=== PATIENT | female | born 1975 | race Caucasian/White ===

== ENCOUNTER 2019-04-16 15:07 | Emergency (ER) | payer OTHER ==
[~2019-04-16] VITALS: Ht 162.6 cm; Wt 96.2 kg
[~2019-04-16 15:07] MED LIST: CYCL10 PO; ERGO50000 PO; ESTRADIOL1 MG PO; HYDACE5 PO; IBUP600 PO; IBUP800 PO; LORA10ER PO; MONT10T PO; OXYACE5T PO; PROM25 PO; Pseudoephedrine30 MG PO; RANI150 PO; SULTRIDS
== END 2019-04-16 17:00 | disposition home or self-care (01) ==
LOC: ER 15:07
DX: G43.109 Migraine with aura, not intractable, without status migrainosus (principal); F17.200 Nicotine dependence, unspecified, uncomplicated; Z88.2 Allergy status to sulfonamides; Z91.048 Other nonmedicinal substance allergy status; Z88.8 Allergy status to other drugs, medicaments and biological substances
CPT/HCPCS: 70450; 96374; 96375; 99283-25; J1200; J1885; J2765; J7030

== ENCOUNTER → 2022-01-09 | Outpatient (CLI) | payer OTHER | END | disposition home or self-care (01) | LOC: LAB SHORT 10:16 → LAB 10:16 | DX: R30.9 Painful micturition, unspecified (principal) | CPT/HCPCS: 82043 ==

== ENCOUNTER 2022-02-25 07:03 | Day surgery (SDC) | payer OTHER ==
[~2022-02-25] VITALS: Ht 167.6 cm; Wt 90.0 kg
[2022-02-25] MEDS ORDERED: Cyclobenzaprine5 MG (07:53)
--- NOTE | 2022-02-25 07:59 | NUR ---
02/25/22 0759 Duglas Dickson CALL LIGHT WITHIN REACH. FAMILY BEDSIDE
--- NOTE | 2022-02-25 08:02 | NUR ---
02/25/22 0802 eVro Alfonso, SPIDER, GEL X3, WEDGE PILLOW FOR POSITIONING. POSITIONING CHECKD BY SURGEON AND ANESTHESIA.
--- NOTE | 2022-02-25 10:03 | NUR ---
02/25/22 1003 ALICJA REAL REPEAT BP 100/45. PT ALERT AND TALKING. STATES PAIN IS 6/10 IN R SHOULDER. REPEAT BP IS 111/67. O2 SAT ON RA IS 96% AND PULSE 90
--- NOTE | 2022-02-25 10:22 | NUR ---
02/25/22 1022 ALICJA REAL WILL GIVE ANOTHER DOSE OF FENTANYL 25MCG IV PUSH TO = 50MCG. BP 108/69
== END 2022-02-25 11:30 | disposition home or self-care (01) ==
LOC: ORSCSDS 07:03
PROVIDERS: Orthopaedic Surgery
PROC: 0LQ14ZZ Repair Right Shoulder Tendon, Percutaneous Endoscopic Approach (ICD-10-PCS; principal; 2022-02-25 08:30)
PROC: 0RNJ4ZZ Release Right Shoulder Joint, Percutaneous Endoscopic Approach (ICD-10-PCS; principal; 2022-02-25 08:30)
DX: M75.111 Incomplete rotator cuff tear or rupture of right shoulder, not specified as traumatic (principal); M75.21 Bicipital tendinitis, right shoulder; M75.41 Impingement syndrome of right shoulder
CPT/HCPCS: A9270; C1713; J0171; J0690; J1100; J2250; J2405; J2704; J3010; J7120

== ENCOUNTER → 2022-12-24 | Outpatient (CLI) | payer OTHER ==
[~2022-12-24] MED LIST changes: +Cyclobenzaprine5 MG
== END | disposition home or self-care (01) ==
LOC: PLD 07:30 → LAB 07:30 → LAB SHORT 07:30
DX: D23.5 Other benign neoplasm of skin of trunk (principal)
CPT/HCPCS: 88305

== ENCOUNTER 2023-03-13 14:00 | Day surgery (SDC) | payer OTHER ==
[~2023-03-13] VITALS: Ht 167.6 cm; Wt 95.3 kg
[2023-03-13] MEDS ORDERED: TRAM50 (14:11)
[2023-03-13] MEDS ORDERED: CYCL10 (14:12)
[2023-03-13] MEDS ORDERED: LIDOCAINE1 EACH (14:12)
[2023-03-13 15:43] VITALS: BP 119/76
== END 2023-03-13 15:47 | disposition home or self-care (01) ==
LOC: ORSCSDS 14:00
PROVIDERS: Internal Medicine Gastroenterology
PROC: 0DBM8ZX Excision of Descending Colon, Via Natural or Artificial Opening Endoscopic, Diagnostic (ICD-10-PCS; principal; 2023-03-13 15:15)
DX: Z12.11 Encounter for screening for malignant neoplasm of colon (principal); K52.9 Noninfective gastroenteritis and colitis, unspecified; Z87.891 Personal history of nicotine dependence; K57.30 Diverticulosis of large intestine without perforation or abscess without bleeding
CPT/HCPCS: 88305; J0461; J2001; J2405; J2704; J7120; Q9968

== ENCOUNTER 2023-08-17 19:24 | Emergency (ER) | payer OTHER ==
[~2023-08-17] VITALS: Ht 167.6 cm; Wt 93.4 kg
[~2023-08-17 19:24] MED LIST changes: +CYCL10; +LIDOCAINE1 EACH; +TRAM50
[2023-08-17 19:41] VITALS: BP 161/102
[2023-08-17] MEDS ORDERED: Dexamethasone Sod Phos 10 MG/ML 1ML VIAL PO ONE (19:50)
[2023-08-17] MEDS ORDERED: Famotidine 20 MG Tab PO ONE (19:50)
[2023-08-17] MEDS ORDERED: RX Prepack 2 Tabs Ondansetron ODT 4MG UD ONE (20:35)
== END 2023-08-17 20:46 | disposition home or self-care (01) ==
LOC: ER 19:24
DX: T78.40XA Allergy, unspecified, initial encounter (principal); Z88.2 Allergy status to sulfonamides; Z91.048 Other nonmedicinal substance allergy status; Z88.8 Allergy status to other drugs, medicaments and biological substances; Z88.6 Allergy status to analgesic agent; Z88.5 Allergy status to narcotic agent; Z91.011 Allergy to milk products; Z79.899 Other long term (current) drug therapy
CPT/HCPCS: 99283; A9270; J1100

== ENCOUNTER → 2024-01-16 | Outpatient (CLI) | payer OTHER ==
[2024-01-16 14:43] LABS: BASOPHILS ABSOLUTE AUTO 0.03 K/mm3 (0.00-0.23); BASOPHILS PERCENT AUTO 0 % (0-2); EOSINOPHILS ABSOLUTE AUTO 0.05 K/mm3 (0.00-0.68); EOSINOPHILS PERCENT AUTO 0 % (0-6); Hematocrit 47.8 % (33.0-51.0); Hemoglobin 15.7 g/dL (11.5-16.0); IMMATURE GRAN ABSOLUTE AUTO 0.06 K/mm3 (0.00-0.10); IMMATURE GRAN PERCENT AUTO 0 % (0-1); LYMPHOCYTES ABSOLUTE AUTO 1.93 K/mm3 (0.84-5.20); LYMPHOCYTES PERCENT AUTO 12 % (21-46); MONOCYTES ABSOLUTE AUTO 0.59 K/mm3 (0.16-1.47); MONOCYTES PERCENT AUTO 4 % (4-13); Mean Corpuscular HGB 28.8 pg (26.0-34.0); Mean Corpuscular HGB Conc 32.8 g/dL (31.5-36.5); Mean Corpuscular Volume 88 fL (80-100); Mean Platelet Volume 10.6 fL (9.1-12.4); NEUTROPHILS PERCENT AUTO 83 % (41-73); Platelet Count 304 K/mm3 (150-400); RDW Coefficient Variation 14.1 % (11.7-14.2); Red Blood Cell Count 5.46 M/mm3 (3.80-5.20); White Blood Cell Count 15.56 K/mm3 (4.00-11.30)
[2024-01-16 14:54] LABS: Albumin, Blood 4.2 g/dL (3.4-5.0); Albumin/Globulin Ratio 1.1 (0.8-1.8); Bilirubin, Total 0.4 mg/dL (0.1-1.0); Bun/Creatinine Ratio 15.1 (12.0-20.0); Calcium, Blood 9.7 mg/dL (8.5-10.1); Creatinine, Blood 0.86 mg/dL (0.40-1.00); Potassium, Blood 3.8 mmol/L (3.5-5.5); Total Protein, Blood 8.2 g/dL (6.4-8.2)
== END ==
LOC: LAB 14:38 → LAB SHORT 14:38
PROVIDERS: Internal Medicine
DX: R19.7 Diarrhea, unspecified (principal); E86.0 Dehydration
CPT/HCPCS: 80053; 85025

== ENCOUNTER 2024-08-31 06:11 | Day surgery (SDC) | payer OTHER ==
[~2024-08-31] VITALS: Ht 167.6 cm; Wt 80.1 kg
[2024-08-31] MEDS ORDERED: NS 0 ML IV ONE (06:21)
[2024-08-31] MEDS ORDERED: Tranexamic Acid 100 ML IV ONE (06:22)
[2024-08-31] MEDS ORDERED: Lactated Ringer's 1,000 ML IV ONE ×3 (06:50→09:21)
[2024-08-31] MEDS ORDERED: ASPI81CH (06:54)
[2024-08-31] MEDS ORDERED: ACET500 (06:54)
[2024-08-31] MEDS ORDERED: Lidocaine 2%-Epineph 1:200000 20 ML SDV ONE (06:55)
[2024-08-31] MEDS ORDERED: EPINEPhrine HCl 1 MG / ML 30ML Vial ONE (06:55)
[2024-08-31] MEDS ORDERED: propofoL 20 ML IV ONE (07:02)
[2024-08-31] MEDS ORDERED: Midazolam HCl 1MG / ML 2ML Vial ONE (07:02)
[2024-08-31] MEDS ORDERED: Rocuronium Bromide 10 MG/ML 5ML Injection IV ONE (07:02)
[2024-08-31] MEDS ORDERED: FentaNYL Citrate 50 MCG/ML 2 ML Injection ONE (07:02)
[2024-08-31] MEDS ORDERED: Dexamethasone Sod Phos 10 MG/ML 1ML VIAL ONE (07:35)
[2024-08-31] MEDS ORDERED: Ondansetron HCl 2 MG / ML 2ML Vial ONE (07:35)
--- NOTE | 2024-08-31 07:52 | NUR ---
08/31/24 0752 Eulalia Carranza STARTED AT [address] CAPELLAN
[2024-08-31] MEDS ORDERED: Sugammadex Sodium 200 MG/2ML SDV (100 MG/ML) ONE (08:29)
[2024-08-31] MEDS ORDERED: Phenylephrine HCl 100 MCG/ML-NS 10MLSYR (1MG/10ML) ONE (08:29)
[2024-08-31] MEDS ORDERED: Ketorolac Tromethamine 30mg Vial ONE (08:29)
[2024-08-31 09:29] VITALS: BP 122/85
--- NOTE | 2024-08-31 09:29 | NUR ---
08/31/24 0929 Mandy Storey RECEIVED REPORT FROM ALOK KLEIN
== END 2024-08-31 09:57 | disposition home or self-care (01) ==
LOC: ORSCSDS 06:11
PROVIDERS: Otolaryngology
PROC: 09BM0ZZ Excision of Nasal Septum, Open Approach (ICD-10-PCS; principal; 2024-08-31 07:30)
PROC: 09SL0ZZ Reposition Nasal Turbinate, Open Approach (ICD-10-PCS; principal; 2024-08-31 07:30)
DX: J34.2 Deviated nasal septum (principal); J34.3 Hypertrophy of nasal turbinates; J32.8 Other chronic sinusitis
CPT/HCPCS: J0171; J1100; J1885; J2250; J2371; J2405; J2704; J3010; J7030; J7120

== ENCOUNTER 2024-11-11 13:01 | Emergency (ER) | payer OTHER ==
[~2024-11-11] VITALS: Ht 167.6 cm; Wt 83.9 kg
[~2024-11-11 13:01] MED LIST changes: +ACET500; +ASPI81CH
[2024-11-11] MEDS ORDERED: Dexamethasone Sod Phos 10 MG/ML 1ML VIAL IV ONE (13:45)
[2024-11-11 15:07] VITALS: BP 142/88
[2024-11-11] MEDS ORDERED: EPIPEN0.3 MG/0.3 IM (15:16)
== END 2024-11-11 15:25 | disposition home or self-care (01) ==
LOC: ER 13:01
DX: R21 Rash and other nonspecific skin eruption (principal); R06.02 Shortness of breath; T42.6X5A Adverse effect of other antiepileptic and sedative-hypnotic drugs, initial encounter; Z88.2 Allergy status to sulfonamides; Z88.1 Allergy status to other antibiotic agents; Z91.011 Allergy to milk products; Z88.5 Allergy status to narcotic agent; Z79.2 Long term (current) use of antibiotics; Z79.82 Long term (current) use of aspirin
CPT/HCPCS: 93005; 93010; 96374; 99283-25; J1100

== ENCOUNTER 2024-11-14 19:46 | Emergency (ER) | payer OTHER ==
[~2024-11-14] VITALS: Ht 167.6 cm; Wt 83.9 kg
[~2024-11-14 19:46] MED LIST changes: +EPIPEN0.3 MG/0.3 IM
[2024-11-14 20:20] LABS: Hematocrit 41.2 % (33.0-51.0); Hemoglobin 13.6 g/dL (11.5-16.0); Mean Corpuscular HGB 28.9 pg (26.0-34.0); Mean Corpuscular Volume 88 fL (80-100); Mean Platelet Volume 10.7 fL (9.1-12.4); Platelet Count 303 K/mm3 (150-400); RDW Coefficient Variation 13.6 % (11.7-14.2); RDW Standard Deviation 43.6 fL (35.1-46.3); Red Blood Cell Count 4.71 M/mm3 (3.80-5.20); White Blood Cell Count 12.02 K/mm3 (4.00-11.30)
[2024-11-14 20:52] LABS: Albumin, Blood 4.2 g/dL (3.4-5.0); Albumin/Globulin Ratio 1.3 (0.8-1.8); Bilirubin, Total 0.2 mg/dL (0.1-1.0); Bun/Creatinine Ratio 17.2 (12.0-20.0); Calcium, Blood 9.4 mg/dL (8.5-10.1); Creatinine, Blood 0.87 mg/dL (0.40-1.00); Globulin, Blood 3.3 g/dL (2.2-4.0); Potassium, Blood 3.5 mmol/L (3.5-5.5); Total Protein, Blood 7.5 g/dL (6.4-8.2)
[2024-11-14 21:06] LABS: BASOPHILS PERCENT MAN 0 % (0-2); EOSINOPHILS ABSOLUTE MAN 0.24 K/mm3 (0.00-0.68); EOSINOPHILS PERCENT MAN 2 % (0-6); LYMPHOCYTES ABSOLUTE MAN 4.56 K/mm3 (0.84-5.20); LYMPHOCYTES PERCENT MAN 38 % (21-46); MONOCYTES PERCENT MAN 5 % (4-13); NEUTROPHILS ABSOLUTE MAN 6.61 K/mm3 (1.96-9.15); SEG NEUTROPHILS PERCENT MAN 55 % (41-73); TOTAL CELLS COUNTED 100
[2024-11-14] MEDS ORDERED: MethylPREDNISolone Sod Succ 125 MG Vial IV ONE (22:45)
[2024-11-14] MEDS ORDERED: DiphenhydrAMINE HCl 50 MG/ML 1ML Vial IV ONE (22:45)
[2024-11-14] MEDS ORDERED: Famotidine 10 MG/ML 2ML Vial IV ONE (22:45)
[2024-11-15 00:30] VITALS: BP 144/105
== END 2024-11-15 01:04 | disposition home or self-care (01) ==
LOC: ER 19:46
PROVIDERS: Emergency Medicine
DX: L27.1 Localized skin eruption due to drugs and medicaments taken internally (principal); T42.3X5A Adverse effect of barbiturates, initial encounter; Z88.2 Allergy status to sulfonamides; Z88.8 Allergy status to other drugs, medicaments and biological substances; Z91.09 Other allergy status, other than to drugs and biological substances; Z88.5 Allergy status to narcotic agent; Z91.011 Allergy to milk products; Z79.82 Long term (current) use of aspirin
CPT/HCPCS: 80053; 85025; 93005; 93010; 96374; 96375; 99283-25; J1200; J2919

== ENCOUNTER 2025-05-18 13:19 | Emergency (ER) | payer OTHER ==
[~2025-05-18] VITALS: Ht 165.1 cm; Wt 83.5 kg
[2025-05-18 15:11] LABS: BASOPHILS ABSOLUTE AUTO 0.06 K/mm3 (0.00-0.23); BASOPHILS PERCENT AUTO 1 % (0-2); EOSINOPHILS ABSOLUTE AUTO 0.20 K/mm3 (0.00-0.68); EOSINOPHILS PERCENT AUTO 2 % (0-6); Hematocrit 41.9 % (33.0-51.0); Hemoglobin 14.0 g/dL (11.5-16.0); IMMATURE GRAN ABSOLUTE AUTO 0.03 K/mm3 (0.00-0.10); IMMATURE GRAN PERCENT AUTO 0 % (0-1); LYMPHOCYTES ABSOLUTE AUTO 2.94 K/mm3 (0.84-5.20); LYMPHOCYTES PERCENT AUTO 22 % (21-46); MONOCYTES ABSOLUTE AUTO 0.77 K/mm3 (0.16-1.47); MONOCYTES PERCENT AUTO 6 % (4-13); Mean Corpuscular HGB Conc 33.4 g/dL (31.5-36.5); Mean Corpuscular Volume 88 fL (80-100); NEUTROPHILS ABSOLUTE AUTO 9.32 K/mm3 (1.96-9.15); NEUTROPHILS PERCENT AUTO 70 % (41-73); NRBC ABSOLUTE 0.00 K/mm3 (0.00-0.02); NRBC Auto 0.0 /100 WBC (0.0-0.2); Platelet Count 284 K/mm3 (150-400); RDW Coefficient Variation 14.4 % (11.7-14.2); RDW Standard Deviation 46.5 fL (35.1-46.3)
[2025-05-18 15:49] LABS: Alanine Aminotransfer (ALT/SGP 27.0 U/L (12-78); Albumin, Blood 4.1 g/dL (3.4-5.0); Albumin/Globulin Ratio 1.4 (0.8-1.8); Anion Gap 5.0 mmol/L (3-11); Aspartate Aminotrans (AST/SGOT 17.0 U/L (12-37); Bilirubin, Total 0.2 mg/dL (0.1-1.0); Blood Urea Nitrogen 14.0 mg/dL (8-24); CO2, Blood 30.0 mmol/L (21-32); Calcium, Blood 8.9 mg/dL (8.5-10.1); Chloride, Blood 107.0 mmol/L (98-108); Creatinine, Blood 1.22 mg/dL (0.40-1.00); Globulin, Blood 3.0 g/dL (2.2-4.0); Glucose, Blood 106.0 mg/dL (70-99); Potassium, Blood 3.7 mmol/L (3.5-5.5); Sodium, Blood 138.0 mmol/L (136-145); Total Protein, Blood 7.1 g/dL (6.4-8.2)
[2025-05-18 19:03] VITALS: BP 151/81
== END 2025-05-18 19:20 | disposition home or self-care (01) ==
LOC: ER 13:19
PROVIDERS: Emergency Medicine
DX: K11.20 Sialoadenitis, unspecified (principal); Z88.2 Allergy status to sulfonamides; Z91.0110 Allergy to milk products, unspecified; Z88.1 Allergy status to other antibiotic agents; Z88.8 Allergy status to other drugs, medicaments and biological substances; Z79.82 Long term (current) use of aspirin
CPT/HCPCS: 70491; 80053; 84443; 85025; 99284-25; Q9967